=== PATIENT | male | born 1945 | race Caucasian/White ===

== ENCOUNTER 2019-09-20 07:28 | Inpatient (IN) | payer MEDICARE ==
[~2019-09-20] VITALS: Ht 182.9 cm; Wt 81.2 kg
[~2019-09-20 07:28] MED LIST: AMLO5TAB9 PO; SENN15TA4 PO
[2019-09-20] MEDS ORDERED: PRED5DRO25 OU (07:36)
[2019-09-20] MEDS ORDERED: AMLO2.5T4 PO (07:36)
[2019-09-20] MEDS ORDERED: METO50 PO (07:36)
[2019-09-20] MEDS ORDERED: TIMO5DRO35 OU (07:36)
[2019-09-20] MEDS ORDERED: BRIM15DR8 OU (07:36)
[2019-09-20] MEDS ORDERED: ATOR10TA84 PO (07:36)
[2019-09-20] MEDS ORDERED: OFLO35OS OU (07:36)
[2019-09-20] MEDS ORDERED: ATRO10DR OU (07:36)
[2019-09-20 08:01] LABS: BASOPHILS % (AUTO) 0.4 % (0.0-2.0); EOSINOPHILS % (AUTO) 0.2 % (1.0-6.0); HEMATOCRIT 44.3 % (41-53); HEMOGLOBIN 15.2 g/dL (13.5-17.5); LYMPHOCYTES # (AUTO) 1.5 K/uL (1.0-4.8); LYMPHOCYTES % (AUTO) 10.9 % (22.0-44.0); MEAN CORPUSCULAR HEMOGLOBIN 32.9 pg (26.0-34.0); MEAN CORPUSCULAR HGB CONC 34.4 G/dL (31.0-37.0); MEAN CORPUSCULAR VOLUME 96 fL (80-100); MONOCYTES % (AUTO) 7.2 % (2.0-9.0); NEUTROPHILS # (AUTO) 11.4 K/uL (1.8-7.7); NEUTROPHILS % (AUTO) 81.3 % (40.0-70.0); PLATELET COUNT (AUTO) 217 K/uL (150-450); RED BLOOD CELL COUNT(AUTO) 4.63 MIL/uL (4.50-5.90); RED CELL DISTRIBUTION WIDTH 13.3 % (11.5-14.5)
[2019-09-20 08:12] LABS: ANION GAP 8 mmol/L (8-16); CALCIUM, TOTAL 8.7 mg/dL (8.8-10.5); CARBON DIOXIDE 25 mmol/L (22-29); CHLORIDE 107 mmol/L (98-107); CREATININE 1.07 mg/dL (0.60-1.30); GLOMERULAR FILTR. RATE CALC > 60 mL/min (>60); GLUCOSE,RANDOM 165 mg/dL (70-110); POTASSIUM 3.6 mmol/L (3.5-5.1); SODIUM SERUM 140 mmol/L (136-145); UREA NITROGEN, BLOOD 19 mg/dL (7-18)
[2019-09-20 08:15] LABS: INR 1.1 (0.9-1.1); PROTHROMBIN TIME 10.8 SEC (9.4-11.6)
[2019-09-20 08:28] LABS: B-TYPE NATRIURETIC PEPTIDE 122 pg/mL (0-100)
[2019-09-20 08:37] LABS: ALANINE AMINOTRANSFERASE 21 U/L (12-78); ALBUMIN 3.9 g/dL (3.4-5.0); ALKALINE PHOSPHATASE 65 U/L (46-116); ASPARTATE AMINOTRANSFERASE 22 U/L (15-37); BILIRUBIN,TOTAL 0.4 mg/dL (0.1-1.0); CREATINE KINASE, TOTAL ONLY 218 U/L (39-308)
[2019-09-20 09:29] LABS: APPEARANCE,URINE CLEAR (CLEAR); BILIRUBIN,URINE NEGATIVE (NEGATIVE); GLUCOSE, URINE (UA) NEGATIVE (NEGATIVE); KETONES,URINE NEGATIVE (NEGATIVE); LEUKOCYTE ESTERASE ,URINE NEGATIVE (NEGATIVE); NITRATE,URINE NEGATIVE (NEGATIVE); OCCULT BLOOD,URINE NEGATIVE (NEGATIVE); PROTEIN,URINE NEGATIVE (NEGATIVE); UROBILINOGEN,URINE 0.2 mg/dL (<=1.0)
[2019-09-20] MEDS: ASPIRIN 81 MG CHEWABLE TABLET PO SCH (10:10)
[2019-09-20] MEDS ORDERED: ONDANSETRON HCL 4 MG/2 ML VIAL IVP PRN (10:45)
[2019-09-20] MEDS ORDERED: ACETAMINOPHEN 325 MG TABLET PO PRN (10:45)
[2019-09-20] MEDS ORDERED: 0.9% SODIUM CHLORIDE 10 ML SYRINGE IVP PRN (10:45)
[2019-09-20 15:40] VITALS: BP 142/96
[2019-09-20] MEDS ORDERED: PSYL3.4P5 PO (18:57)
[2019-09-20 20:02] VITALS: BP 119/79
[2019-09-21 00:10] VITALS: BP 128/79
[2019-09-21 04:42] VITALS: BP 125/84
[2019-09-21 06:50] LABS: BASOPHILS % (AUTO) 0.3 % (0.0-2.0); EOSINOPHILS % (AUTO) 0.3 % (1.0-6.0); HEMATOCRIT 44.7 % (41-53); HEMOGLOBIN 15.3 g/dL (13.5-17.5); LYMPHOCYTES # (AUTO) 1.4 K/uL (1.0-4.8); LYMPHOCYTES % (AUTO) 11.5 % (22.0-44.0); MEAN CORPUSCULAR HEMOGLOBIN 32.6 pg (26.0-34.0); MEAN CORPUSCULAR HGB CONC 34.3 G/dL (31.0-37.0); MEAN CORPUSCULAR VOLUME 95 fL (80-100); MONOCYTES # (AUTO) 1.4 K/uL (0.1-1.0); MONOCYTES % (AUTO) 11.2 % (2.0-9.0); NEUTROPHILS # (AUTO) 9.4 K/uL (1.8-7.7); NEUTROPHILS % (AUTO) 76.7 % (40.0-70.0); PLATELET COUNT (AUTO) 202 K/uL (150-450); RED BLOOD CELL COUNT(AUTO) 4.71 MIL/uL (4.50-5.90); RED CELL DISTRIBUTION WIDTH 13.5 % (11.5-14.5)
[2019-09-21 07:00] LABS: ALANINE AMINOTRANSFERASE 21 U/L (12-78); ALBUMIN 3.6 g/dL (3.4-5.0); ALKALINE PHOSPHATASE 70 U/L (46-116); ANION GAP 10 mmol/L (8-16); ASPARTATE AMINOTRANSFERASE 18 U/L (15-37); BILIRUBIN,TOTAL 0.8 mg/dL (0.1-1.0); CALCIUM, TOTAL 8.6 mg/dL (8.8-10.5); CARBON DIOXIDE 25 mmol/L (22-29); CHLORIDE 107 mmol/L (98-107); CREATININE 0.83 mg/dL (0.60-1.30); GLUCOSE,RANDOM 114 mg/dL (70-110); POTASSIUM 3.9 mmol/L (3.5-5.1); SODIUM SERUM 142 mmol/L (136-145); TOTAL PROTEIN, SERUM 6.6 g/dL (6.4-8.2); UREA NITROGEN, BLOOD 15 mg/dL (7-18)
[2019-09-21 07:03] LABS: GLOMERULAR FILTR. RATE CALC > 60 mL/min (>60)
[2019-09-21 08:21] VITALS: BP 110/76
[2019-09-21] MEDS: ASPIRIN 81 MG CHEWABLE TABLET PO SCH (09:00)
[2019-09-21] MEDS ORDERED: ACETAMINOPHEN 325 MG TABLET PO PRN (10:30)
== END 2019-09-21 10:53 | disposition left against medical advice (07) | DRG 315 ==
LOC: EMS 07:28 → AHU 11:59 → 5S 14:20
PROVIDERS: ADMIT Internal Medicine; ATTEND Internal Medicine
DX: I95.9 Hypotension, unspecified (principal); S22.39XA Fracture of one rib, unspecified side, initial encounter for closed fracture; R00.1 Bradycardia, unspecified; I10 Essential (primary) hypertension; S42.009A Fracture of unspecified part of unspecified clavicle, initial encounter for closed fracture; E78.00 Pure hypercholesterolemia, unspecified; E78.5 Hyperlipidemia, unspecified; F12.90 Cannabis use, unspecified, uncomplicated; K21.9 Gastro-esophageal reflux disease without esophagitis; W18.39XA Other fall on same level, initial encounter; Y93.89 Activity, other specified; Y92.89 Other specified places as the place of occurrence of the external cause; Y99.8 Other external cause status
CPT/HCPCS: 71250; 87081; 93005; 93306; 93880

== ENCOUNTER 2022-04-07 11:02 | Emergency (ER) | payer MEDICARE ==
[~2022-04-07] VITALS: Ht 185.4 cm; Wt 77.3 kg
[~2022-04-07 11:02] MED LIST changes: +AMLO2.5T96 PO; -AMLO5TAB9 PO; +ATOR10TA84 PO; +ATRO10DR OU; +BRIM15DR8 OU; +METO50 PO; +OFLO35OS OU; +PRED5DRO25 OU; +PSYL3.4P5 PO; -SENN15TA4 PO; +TIMO5DRO35 OU
[2022-04-07] MEDS ORDERED: BARIUM SULFATE 0.1% SUSPENSION 450 ML BOTTLE PO ONE (12:15)
[2022-04-07 12:27] LABS: BASOPHILS % (AUTO) 0.6 % (0.0-2.0); EOSINOPHILS % (AUTO) 0.6 % (1.0-6.0); HEMATOCRIT 46.1 % (41-53); HEMOGLOBIN 15.8 g/dL (13.5-17.5); LYMPHOCYTES # (AUTO) 1.6 K/uL (1.0-4.8); LYMPHOCYTES % (AUTO) 14.2 % (22.0-44.0); MEAN CORPUSCULAR HEMOGLOBIN 31.9 pg (26.0-34.0); MEAN CORPUSCULAR HGB CONC 34.4 G/dL (31.0-37.0); MEAN CORPUSCULAR VOLUME 93 fL (80-100); MONOCYTES % (AUTO) 8.8 % (2.0-9.0); NEUTROPHILS # (AUTO) 8.4 K/uL (1.8-7.7); NEUTROPHILS % (AUTO) 75.8 % (40.0-70.0); PLATELET COUNT (AUTO) 212 K/uL (150-450); RED BLOOD CELL COUNT(AUTO) 4.96 MIL/uL (4.50-5.90); RED CELL DISTRIBUTION WIDTH 13.4 % (11.5-14.5)
[2022-04-07 12:35] LABS: CALCIUM, TOTAL 9.4 mg/dL (8.8-10.5); CREATININE 1.19 mg/dL (0.60-1.30); POTASSIUM 4.5 mmol/L (3.5-5.1)
[2022-04-07 12:42] LABS: ALBUMIN 4.3 g/dL (3.4-5.0); BILIRUBIN,TOTAL 0.7 mg/dL (0.1-1.0); TOTAL PROTEIN, SERUM 7.9 g/dL (6.4-8.2)
[2022-04-07 12:56] LABS: APPEARANCE,URINE TURBID (CLEAR); BILIRUBIN,URINE NEGATIVE (NEGATIVE); GLUCOSE, URINE (UA) NEGATIVE (NEGATIVE); LEUKOCYTE ESTERASE ,URINE LARGE (NEGATIVE); NITRATE,URINE NEGATIVE (NEGATIVE); OCCULT BLOOD,URINE MODERATE (NEGATIVE); PH,URINE 6.5 (5.0-8.0); PROTEIN,URINE 100-200,SEE CONFIRM mg/dL (NEGATIVE); SPECIFIC GRAVITIY, URINE 1.022 (1.003-1.030); UROBILINOGEN,URINE <=1.0 mg/dL (<=1.0)
[2022-04-07] MEDS ORDERED: IOHEXOL 350 MG/ML 100 ML VIAL ONE (13:15)
[2022-04-07] MEDS ORDERED: SODIUM CHLORIDE 0.9% 100 ML ONE (13:15)
[2022-04-07 13:19] LABS: BACTERIA,URINE Many /HPF (None Seen); SQUAMOUS EPITHELIAL CELL,UR Few /LPF (None Seen); SULFOSALICYLIC ACID,URINE 4+ (Negative); WBC,URINE >100 /HPF (0-5)
[2022-04-07] MEDS ORDERED: CIPR500T10 PO (15:24)
[2022-04-07] MEDS ORDERED: CefTRIAXone 1 GM/DEXTROSE 50 ML IV ONE (15:30)
[2022-04-07 15:56] VITALS: BP 136/71
== END 2022-04-07 15:59 | disposition home or self-care (01) ==
LOC: EMS 11:02
DX: N41.9 Inflammatory disease of prostate, unspecified (principal); N39.0 Urinary tract infection, site not specified; K59.00 Constipation, unspecified; N40.0 Benign prostatic hyperplasia without lower urinary tract symptoms; F10.20 Alcohol dependence, uncomplicated; E78.00 Pure hypercholesterolemia, unspecified; I10 Essential (primary) hypertension; H54.7 Unspecified visual loss; F17.210 Nicotine dependence, cigarettes, uncomplicated; Z87.19 Personal history of other diseases of the digestive system; Z94.7 Corneal transplant status; Z98.890 Other specified postprocedural states
CPT/HCPCS: 36415; 74177; 80053; 81001; 83690; 85025; 87086; 96365; 99285; J0696; J7050; Q9967; 81002

== ENCOUNTER 2022-04-16 08:25 | Emergency (ER) | payer MEDICARE ==
[~2022-04-16] VITALS: Ht 182.9 cm; Wt 79.5 kg
[~2022-04-16 08:25] MED LIST changes: +CIPR500T10 PO
[2022-04-16 08:30] VITALS: BP 110/75
== END 2022-04-16 08:47 | disposition left against medical advice (07) ==
LOC: EMS 08:25
DX: Z76.0 Encounter for issue of repeat prescription (principal); Z53.21 Procedure and treatment not carried out due to patient leaving prior to being seen by health care provider

== ENCOUNTER 2025-05-16 10:40 | Emergency (ER) | payer MEDICARE ==
[~2025-05-16] VITALS: Ht 177.8 cm; Wt 65.9 kg
[~2025-05-16 10:40] MED LIST changes: +ATOR10TA PO; -ATOR10TA84 PO; -BRIM15DR8 OU; +BRIM5DRO9 OU; +CIPR-515 PO; -CIPR500T10 PO; -OFLO35OS OU; +OFLO5DRO49 OU; -TIMO5DRO35 OU; +TIMO5DRO47 OU
[2025-05-16 10:48] VITALS: TEMP 97.7
[2025-05-16] MEDS: ACETAMINOPHEN 500 MG TABLET PO ONE (10:58)
[2025-05-16] MEDS: IBUPROFEN 600 MG TABLET PO ONE (10:59)
[2025-05-16] MEDS: BACITRACIN 0.9 GM PACKET OINTMENT TP ONE (10:59)
[2025-05-16] MEDS: ONDANSETRON HCL 4 MG/2 ML VIAL IVP ONE (13:25)
[2025-05-16 15:30] VITALS: BP 140/89; PULSE 75; RESP 16; O2SAT 98
== END 2025-05-16 15:30 | disposition short-term general hospital (02) ==
LOC: EMS 10:42
DX: S82.832A Other fracture of upper and lower end of left fibula, initial encounter for closed fracture (principal); I10 Essential (primary) hypertension; E78.00 Pure hypercholesterolemia, unspecified; F17.210 Nicotine dependence, cigarettes, uncomplicated; K21.9 Gastro-esophageal reflux disease without esophagitis; Z79.899 Other long term (current) drug therapy; V03.10XA Pedestrian on foot injured in collision with car, pick-up truck or van in traffic accident, initial encounter; Y93.01 Activity, walking, marching and hiking; Y92.410 Unspecified street and highway as the place of occurrence of the external cause; Y99.8 Other external cause status
CPT/HCPCS: 99285; 96374; 29515; 73610; J2405; 99284